=== PATIENT | female | born 1970 | race American Indian/Alaskan Native ===

== ENCOUNTER 2018-02-08 10:30 | Emergency (ER) | payer OTHER ==
--- NOTE | 2018-02-08 14:45 | Emergency Department Report ---
ED Psych HPI - General Chief Complaint: Psych Stated Complaint: MENTAL HEALTH EVALUATION Time Seen by Provider: 02/08/18 14:00 Source: patient, family Mode of arrival: Ambulatory Limitations: No Limitations - History of Present Illness Initial Comments: Patient is a 47-year-old female presents to the emergency room for paranoia and psychosis. Patient states that people are out to get her. Patient states that people hacking into her mind and phone. Patient states that the [facility] and has a government agencies are coming after her. Patient states that her family doesn' t believe her so they brought her here to be evaluated. Patient denies visual and audio hallucinations. Patient denies suicidal ideations and homicidal ideations. MD Complaint: other (paranoia) -: Gradual Associated Psychiatric Symptoms: racing thoughts History of same: Yes Quality: constant Improves With: therapy Worsens With: none Context: not taking psychiatric Associated Symptoms: denies other symptoms Treatments Prior to Arrival: none - Related Data Allergies Allergy/AdvReac Type Severity Reaction Status Date / Time hydrocortisone Allergy Itching Verified 02/08/18 10:38 ED Review of Systems ROS: Stated complaint: MENTAL HEALTH EVALUATION Other details as noted in HPI Comment: All other systems reviewed and negative Constitutional: denies: chills, fever Eyes: denies: eye pain, eye discharge, vision change ENT: denies: ear pain, throat pain Respiratory: denies: cough, shortness of breath, wheezing Cardiovascular: denies: chest pain, palpitations Endocrine: no symptoms reported Gastrointestinal: denies: abdominal pain, nausea, diarrhea Genitourinary: denies: urgency, dysuria, discharge Musculoskeletal: denies: back pain, joint swelling, arthralgia Skin: denies: rash, lesions Neurological: denies: headache, weakness, paresthesias Psychiatric: denies: anxiety, depression Hematological/Lymphatic: denies: easy bleeding, easy bruising ED Past Medical Hx - Past Medical History Previous Medical History?: Yes Hx HIV: Yes - Surgical History Past Surgical History?: Yes Additional Surgical History: hysterecomty. x 1 - Family History Family history: no significant - Social History Smoking Status: Current Every Day Smoker Substance Use Type: Alcohol, Marijuana ED Physical Exam - General Limitations: No Limitations General appearance: alert, in no apparent distress - Head Head exam: Present: atraumatic, normocephalic - Eye Eye exam: Present: normal appearance - ENT ENT exam: Present: mucous membranes moist - Neck Neck exam: Present: normal inspection - Respiratory Respiratory exam: Present: normal lung sounds bilaterally. Absent: respiratory distress - Cardiovascular Cardiovascular Exam: Present: regular rate, normal rhythm. Absent: systolic murmur, diastolic murmur, rubs, gallop - GI/Abdominal GI/Abdominal exam: Present: soft, normal bowel sounds - Extremities Exam Extremities exam: Present: normal inspection - Back Exam Back exam: Present: normal inspection - Neurological Exam Neurological exam: Present: alert, oriented X3 - Psychiatric Psychiatric exam: Present: anxious - Expanded Psychiatric Exam Expanded Focused psych exam: Present: pressured speech, delusional, paranoid, flight of ideas - Skin Skin exam: Present: warm, dry, intact, normal color. Absent: rash ED Course Vital Signs 02/08/18 02/08/18 10:38 10:46 Temperature 98.9 F 98.8 F Pulse Rate 102 H 89 Respiratory 18 18 Rate Blood Pressure 166/121 Blood Pressure 107/52 [Left] O2 Sat by Pulse 98 98 Oximetry - Reevaluation(s) Reevaluation #1: Patient unstable due to psychosis and paranoia. We'll 1013 patient for further evaluation and mental eval 02/08/18 14:00 ED Medical Decision Making - Lab Data Result diagrams: 02/08/18 10:56 02/08/18 10:56 - Medical Decision Making Patient medically cleared. All labs reviewed. Will await for psychiatric and mental evaluation. - Differential Diagnosis paranoia. Psychosis. Critical care attestation.: If time is entered above; I have spent that time in minutes in the direct care of this critically ill patient, excluding procedure time. ED Disposition Clinical Impression: Acute paranoia, Psychosis, Delusions Disposition: DC/TX-65 PSY HOSP/PSY UNIT Is pt being admited?: No Does the pt Need Aspirin: No Condition: Stable Time of Disposition: 16:00
[2018-02-08 15:21] LABS: Bacteria,Urine 1+ /HPF (Negative); Bilirubin,Urine NEG (Negative); Blood,Urine NEG (Negative); Color,Urine Yellow (Yellow); Mucus,Urine 3+ /HPF
[2018-02-08 15:27] LABS: Basophils % (Auto) 0.5 % (0.0-1.8); Eosinophils % (Auto) 0.6 % (0.0-4.3); Hematocrit 45.7 % (30.3-42.9); Hemoglobin 14.6 gm/dl (10.1-14.3); Lymphocytes % (Auto) 22.1 % (13.4-35.0); Mean Corpuscular HGB Conc 32 % (30-34); Mean Corpuscular Volume 76 fl (79-97); Monocytes # (Auto) 0.5 K/mm3 (0.0-0.8); Monocytes % (Auto) 10.6 % (0.0-7.3); Platelet Count 264 K/mm3 (140-440); Red Cell Distribution Width 14.9 % (13.2-15.2)
[2018-02-08 15:29] LABS: Mean Corpuscular Hemoglobin 24 pg (28-32)
[2018-02-08 16:03] LABS: BUN/Creatinine Ratio 6; Blood Urea Nitrogen 5 mg/dL (7-17); Calcium 9.3 mg/dL (8.4-10.2); Hemolysis Index 9
--- NOTE | 2018-02-08 18:23 | Consultation ---
History of Present Illness - Reason for Consult Consult date: 02/08/18 Reason for consult: mental health evaluation Requesting physician: CATHERINE SALINAS III - Chief Complaint Chief complaint: "They're trying to kill me" - History of Present Psychiatric Illness 47-year-old female presented to [facility] emergency room , due to paranoia and worsening in psychosis. Patient stated "someone put some bad stuff in my marijuana and they're trying to kill me". Patient also stated somebody tracking her and "they have connections". Patient reported the doctor to get dried on a [employer] bus 3 days ago, and smoking marijuana there, and returned to [place] today morning on a flight. She came to the emergency room directly from the airport. Patient did report that she has been feeling paranoid for the last 3-4 months. However she also stated "I know this is true " and was resistant and believing that these might be paranoid delusions. She vehemently denied having any auditory or visual hallucinations. Her sleep is disturbed. She denied having any depressive symptoms and also denied any anxiety. Denied any suicidal or homicidal ideations. Medications and Allergies Allergies Allergy/AdvReac Type Severity Reaction Status Date / Time hydrocortisone Allergy Itching Verified 02/08/18 10:38 Active Meds: Active Medications Olanzapine (Zyprexa) 5 mg PO HS FAMILIA Past psychiatric history - Past Medical History Past Medical History: other (HIV positive) - past Psychiatric treatment and history psychiatric treatment history: Denies any previous psychiatric hospitalizations. Denies any previous outpatient psychiatric treatment. - Social History Social history: single, other (patient reported that she has been living alone in a motel for the last 3-4 weeks. Prior to that she was living with her mother.) Mental Status Exam - Vital signs Last Vital Signs Temp 98.8 F 02/08/18 10:46 Pulse 89 02/08/18 10:46 Resp 18 02/08/18 10:46 BP 107/52 02/08/18 10:46 Pulse Ox 98 02/08/18 10:46 - Exam Orientation: place, person Affect: anxious, other (labile) Mood: other (irritable) Thought content: delusions, paranoia Thought Process: Circumstantial, Disorganized Perceptions: none Speech: rapid Concentration: distractible Motor activity: normal Level of consciousness: alert Memory: Intact Sleep Symptoms: Difficulty Falling Asleep Interaction: irritable Results Result Diagrams: 02/08/18 10:56 02/08/18 10:56 Abnormal lab results 02/08/18 02/08/18 02/08/18 Range/Units 10:56 10:56 10:56 RBC 6.00 H (3.65-5.03) M/mm3 Hgb 14.6 H (10.1-14.3) gm/dl Hct 45.7 H (30.3-42.9) % MCV 76 L (79-97) fl MCH 24 L (28-32) pg Thurston % (Auto) 10.6 H (0.0-7.3) % Lymph # 1.0 L (1.2-5.4) K/mm3 Chloride 97.7 L (98-107) mmol/L BUN 5 L (7-17) mg/dL Glucose 116 H (65-100) mg/dL Salicylates < 0.3 L (2.8-20.0) mg/dL All other labs normal. Assessment and Plan Assessment and plan: Assessment: Psychosis unspecified Cannabis use disorder Plan: Continue patient on 1013 due to her psychotic symptoms and safety concerns. At this time patient would need a psychiatric inpatient hospitalization. Patient's urine drug sample needs to be collected and tested, to rule out use of any other illicit substances which could be contributing to her symptoms. Will start patient on Zyprexa 5 mg at bedtime to help with the paranoia.
[2018-02-08 19:08] LABS: Amphetamine Screen,Urine PRESUMPTIVE NEGATIVE; Benzodiazepines Screen,Urine PRESUMPTIVE NEGATIVE; Cocaine Screen,Urine PRESUMPTIVE NEGATIVE; Methadone Screen,Urine PRESUMPTIVE NEGATIVE; Opiate Screen,Urine PRESUMPTIVE NEGATIVE
[2018-02-08 19:20] LABS: Cannabinoid Screen,Urine PRESUMPTIVE POSITIVE
--- NOTE | 2018-02-09 18:05 | Progress Note ---
Subjective - Reason for Consult Consult date: 02/09/18 Reason for consult: psychiatric follow-up - Chief Complaint Chief complaint: "I'm all right". 47-year-old female who was brought to the hospital by her daughter, due to worsening in paranoia and psychosis. Patient has been presenting with paranoid delusions July of last year. Yesterday she was worried about how people were trying to kill her. She also was very resistant to being started on any antipsychotic medication. However patient did agree and took the low dose Zyprexa 5 mg that was started yesterday night. She reported feeling "alright". She was not as irritable as yesterday. Continues to present with some delusions including paranoia" kind of". She also appeared hyper sabianism and stated "redirecting my life to God". She denied any current suicidal or homicidal ideations and denied any auditory or visual hallucinations. Mental Status Exam - Vital signs Last Vital Signs Temp 98.7 F 02/09/18 10:00 Pulse 59 L 02/09/18 10:00 Resp 20 02/09/18 10:00 BP 125/82 02/09/18 10:00 Pulse Ox 99 02/09/18 10:00 - Exam Narrative exam: MSE: Appearance: calm Behavior: good eye contact, not as irritable Speech: regular rate and low tone Mood: "Alright" Affect: congruent to mood, constricted Thought Process: tangential Thought Content: disorganized, delusional- paranoid and hyperreligious. Motor Activity: ambulatory Cognition: A/O x 3 Insight: poor Judgment: poor Assessment and Plan Assessment: Psychosis unspecified Cannabis use disorder Urine drug screen was positive for THC Plan: Continue patient on 1013 due to her psychotic symptoms and safety concerns, and facilitate transfer to an inpatient psychiatric hospital. At this time patient would need a psychiatric inpatient hospitalization. Continue on Zyprexa 5 mg at bedtime to help with the paranoia.
[2018-02-12 08:35] LABS: Alanine Aminotransferase 13 units/L (7-56); Lipase 24 units/L (13-60)
--- NOTE | 2018-02-12 12:27 | Progress Note ---
Subjective - Reason for Consult Consult date: 02/12/18 Reason for consult: Psychiatry Follow-up - Chief Complaint Chief complaint: "Nothing is wrong with me" 47-year-old female who was brought to the hospital by her daughter, due to worsening in paranoia and psychosis. The patient is cooperative during the assessment. She continue to be paranoid with delusional thoughts. She still think someone ([employer]) is tracking her. She had to be redirected several time to keep her on track. She stated, "Nothing is wrong with me." She denies SI /HI's and AVH's. She denies any side effects of her medication. She refuses to take Depakote. Mental Status Exam - Vital signs Last Vital Signs Temp 97.9 F 02/12/18 09:40 Pulse 51 L 02/12/18 09:40 Resp 16 02/12/18 09:40 BP 139/72 02/12/18 09:40 Pulse Ox 96 02/12/18 09:40 - Exam Narrative exam: MSE: Appearance: calm, cooperative Behavior: good eye contact Speech: regular rate and low tone Mood: "okay" Affect: congruent to mood Thought Process: circumstantial Thought Content: denies SI/HI's and AVH's, delusional, paranoid Motor Activity: ambulatory Cognition: A/O x 3 Insight: poor Judgment: variable Assessment and Plan Impression: Unspecified Psychosis. Cannabis Use DO. The patient is cooperative during the assessment. The patient is still paranoid with delusional thoughts. DDx: R/O Schizophrenia, R/O Schizoaffective DO, R/O Substance Induced Psychosis Recommendation/Plan: Continue 1013 with placement to inpatient psy services. Continue Zyprexa 5 mg PO HS for psychosis. Discussed possible metabolic side effects of Zyprexa with patient.
--- NOTE | 2018-02-13 00:58 | Progress Note ---
Subjective - Reason for Consult Consult date: 02/10/18 Reason for consult: Psychiatric Follow-up Evaluation - Chief Complaint Chief complaint: "I'm lares" Helen 47-year-old female who was brought to the hospital by her daughter, due to worsening paranoia and psychosis. Patient states, " I'm here because someone in [place] poisoned me. They wanted to hold me hostage. I smoked some marijuana and my whole mouth became numb." She denies SI/HI, A/VH, and delusions. However, paranoia is evident. She reports medication compliance with no side effects noted/reported. Mental Status Exam - Vital signs Last Vital Signs Temp 97.9 F 02/12/18 22:00 Pulse 60 02/12/18 22:00 Resp 18 02/12/18 22:00 BP 133/62 02/12/18 22:00 Pulse Ox 100 02/12/18 22:00 - Exam Narrative exam: Mental Status Exam: General Appearance: Casually dressed- hospital gown Attitude/Behavior: Cooperative but easily irritated Sensorium Distracted Orientation: Alert and oriented x 3 Speech: Rapid Mood: "Lares" Affect: Congruent to mood, constricted Thought Process: Tangential, circumstantial Thought Content: Paranoid Perception: WNL Insight: Poor Judgment: Poor Assessment and Plan Impression: Psychosis unspecified, Cannabis use disorder, Urine drug screen was positive for THC. Today, patient presents anxious, tangential, and paranoid. She denies SI/HI and A/VH. DDx: Psychosis unspecified, Cannabis use disorder, Plan: 1. Continue patient on 1012 due to her psychotic symptoms and safety concerns, and facilitate transfer to an inpatient psychiatric hospital. 2. At this time patient would need a psychiatric inpatient hospitalization. 3. Due to mood instability provider will order loading dose of Depakote 1000mg po x 1. 4. Will begin Depakote 500mg po BID for mood/hubert. 5. Will increase Zyprexa 10mg po QHS for psychosis/ mood.
--- NOTE | 2018-02-13 12:00 | Cat Scan Report ---
CT HEAD WITHOUT CONTRAST: HISTORY: Psychosis, altered mental status. TECHNIQUE: Sequential 2.5mm CT images. COMPARISON: none. FINDINGS: Cerebral Parenchyma: Within normal limits. Cerebellum: Within normal limits. Brainstem: Within normal limits. Ventricles: Normal. Sella: Normal. Extra-axial spaces: Normal. Basal Cisterns: Normal. Intracranial Hemorrhage: None. Midline Shift: None. Calvarium: Normal. Sinuses: Normal. Mastoid Air Cells: Normal. Visualized Orbits: Normal. IMPRESSION: Cranial CT scan within normal limits.
--- NOTE | 2018-02-13 12:10 | Progress Note ---
Subjective - Reason for Consult Consult date: 02/13/18 Reason for consult: Psychiatry Follow-up - Chief Complaint Chief complaint: "I am done smoking weed" 47-year-old female who was brought to the hospital by her daughter, due to worsening in paranoia and psychosis. The patient is calm and cooperative during the assessment. The patient is more organized and lucid today than previous assessments. She is not adamant about someone or something tracking her per previous interviews. She stated that she must have smoked some "bad weed" prior to her admission to the hospital. Per the staff, no behavioral disturbance overnight. She denies SI/HI's and AVH's. She denies any side effects of her medication. Per collateral information from the patient's son Ari Foley at [phone] , he stated that his mother does not have a mental health dx, but smoke marijuana often. He stated that she has experienced bizarre behavior in the past , but believe it came from "heavy use" of marijuana. He stated that his mother has mentioned that she believe someone put something in her "weed" in the past. Mental Status Exam - Vital signs Last Vital Signs Temp 97.9 F 02/12/18 22:00 Pulse 60 02/12/18 22:00 Resp 18 02/12/18 22:00 BP 133/62 02/12/18 22:00 Pulse Ox 100 02/12/18 22:00 - Exam Narrative exam: MSE: Appearance: calm, cooperative Behavior: good eye contact Speech: regular rate and low tone Mood: "okay" Affect: congruent to mood Thought Process: circumstantial Thought Content: denies SI/HI's and AVH's Motor Activity: ambulatory Cognition: A/O x 3 Insight: fair Judgment: fair Assessment and Plan Impression: Unspecified Psychosis. Cannabis Use DO. The patient is calm and cooperative during the assessment. DDx: R/O Schizophrenia, R/O Schizoaffective DO, R/O Substance Induced Psychosis Recommendation/Plan: Evaluate 1013 in 24 hours to determine proper dispo. Continue Zyprexa 10 mg PO HS for psychosis. Discussed possible metabolic side effects of Zyprexa with patient. The patient can follow up with [facility] for rehab services when discharged.
--- NOTE | 2018-02-14 15:04 | Progress Note ---
Subjective - Reason for Consult Consult date: 02/14/18 Reason for consult: Psychiatric Follow-up Evaluation - Chief Complaint Chief complaint: "I feel great." Helen is 47-year-old female who was brought to the hospital by her daughter , due to worsening in paranoia and psychosis. Today patient is calm, cooperative , and compliant. She reports " I feel great. I'm ready to go home." Today patient thought process is organized without any psychosis. She reports medication compliance. She denies any side effects. Per the staff, no behavioral disturbance overnight. She denies SI/HI's, AVH's, or delusions. Mental Status Exam - Vital signs Last Vital Signs Temp 98.7 F 02/14/18 10:32 Pulse 62 02/14/18 10:32 Resp 18 02/14/18 10:32 BP 135/79 02/14/18 10:32 Pulse Ox 98 02/14/18 10:32 - Exam Narrative exam: Narrative exam: Appearance: Hospital gown Attitude/Behavior: Cooperative Sensorium: Clear Oriented: alert and oriented x 4 ( person, place, time, and situation) Speech: Normal rate and low tone Mood: " Great. " Affect: congruent to mood Thought Process: Organized but circumstantial Thought Content: Patient denies Motor Activity: Ambulatory Insight: Fair Judgment: Fair Assessment and Plan Impression: Unspecified Psychosis. Cannabis Use DO. The patient is calm and cooperative during the assessment. She denies SI/HI, A/VH, and delusions. DDx: R/O Schizophrenia, R/O Schizoaffective DO, R/O Substance Induced Psychosis Recommendation/Plan: 1. Will rescind 1013. 2. Continue Zyprexa 10 mg PO HS for psychosis. Discussed possible metabolic side effects of Zyprexa with patient. 3. Patient will follow-up at [facility] for outpatient services when discharged.
[2018-02-14 17:41] VITALS: BP 149/95
--- NOTE | 2018-02-14 17:42 | Emergency Department Report ---
ED Psych HPI - General Chief Complaint: Psych Stated Complaint: MENTAL HEALTH EVALUATION Time Seen by Provider: 02/08/18 14:00 Source: patient, family Mode of arrival: Ambulatory - History of Present Illness Quality: constant Improves With: therapy Worsens With: none Associated Symptoms: denies other symptoms Treatments Prior to Arrival: none - Related Data Previous Rx's Medication Instructions Recorded Last Taken Type OLANzapine [Zyprexa] 10 mg PO QHS #15 tablet 02/14/18 Unknown Rx Allergies Allergy/AdvReac Type Severity Reaction Status Date / Time hydrocortisone Allergy Itching Verified 02/08/18 10:38 ED Review of Systems ROS: Stated complaint: MENTAL HEALTH EVALUATION Other details as noted in HPI Constitutional: denies: chills, fever Eyes: denies: eye pain, eye discharge, vision change ENT: denies: ear pain, throat pain Respiratory: denies: cough, shortness of breath, wheezing Cardiovascular: denies: chest pain, palpitations Endocrine: no symptoms reported Gastrointestinal: denies: abdominal pain, nausea, diarrhea Genitourinary: denies: urgency, dysuria, discharge Musculoskeletal: denies: back pain, joint swelling, arthralgia Skin: denies: rash, lesions Neurological: denies: headache, weakness, paresthesias Psychiatric: denies: anxiety, depression Hematological/Lymphatic: denies: easy bleeding, easy bruising ED Past Medical Hx - Past Medical History Previous Medical History?: Yes Hx HIV: Yes - Surgical History Past Surgical History?: Yes Additional Surgical History: hysterecomty. x 1 - Social History Smoking Status: Current Every Day Smoker Substance Use Type: Alcohol, Marijuana - Medications Home Medications: Home Medications Medication Instructions Recorded Confirmed Last Taken Type OLANzapine [Zyprexa] 10 mg PO QHS #15 tablet 02/14/18 Unknown Rx ED Physical Exam - General Limitations: No Limitations General appearance: alert, in no apparent distress ED Course Vital Signs 02/08/18 02/08/18 02/08/18 10:38 10:46 21:03 Temperature 98.9 F 98.8 F 98.6 F Pulse Rate 102 H 89 69 Respiratory 18 18 16 Rate Blood Pressure 166/121 Blood Pressure 107/52 148/78 [Left] O2 Sat by Pulse 98 98 97 Oximetry 02/09/18 02/09/18 02/09/18 10:00 15:45 20:36 Temperature 98.7 F 98.3 F Pulse Rate 59 L 54 L Respiratory 20 18 18 Rate Blood Pressure 146/83 Blood Pressure 125/82 [Left] O2 Sat by Pulse 99 99 98 Oximetry 02/09/18 02/09/18 02/10/18 21:13 22:26 08:58 Temperature 98.4 F 98.5 F Pulse Rate 83 64 Respiratory 18 18 18 Rate Blood Pressure Blood Pressure 115/64 112/62 [Left] O2 Sat by Pulse 100 100 100 Oximetry 02/10/18 02/11/18 02/11/18 22:00 08:51 20:21 Temperature 97.9 F 98.4 F Pulse Rate 52 L 54 L 64 Respiratory 18 20 Rate Blood Pressure Blood Pressure 122/75 132/77 145/79 [Left] O2 Sat by Pulse 100 Oximetry 02/12/18 02/12/18 02/12/18 09:06 09:40 22:00 Temperature 97.9 F 97.9 F Pulse Rate 51 L 60 Respiratory 16 16 18 Rate Blood Pressure Blood Pressure 139/72 133/62 [Left] O2 Sat by Pulse 100 96 100 Oximetry 02/13/18 02/13/18 02/14/18 07:35 20:55 10:32 Temperature 97.3 F L 97.6 F 98.7 F Pulse Rate 60 58 L 62 Respiratory 18 17 18 Rate Blood Pressure Blood Pressure 121/74 152/80 135/79 [Left] O2 Sat by Pulse 98 99 98 Oximetry ED Medical Decision Making - Lab Data Result diagrams: 02/08/18 10:56 02/08/18 10:56 - Medical Decision Making Patient was 1013onarrivalperweekagoforpsychosisandparanoiashewasstartedon zyprexa mentalhealthfeelsthatsheisnolongerdangertoselforothersnolongergravelydisabledsta bleforoutpatientfollow - up.Given[facility]continuetheZyprexaIdidexaminethepatientshedoe sseemtobealertandoriented 3withoutadmissionofsuicidalorhomicidalideationoranyevidenceofpsychosisshewasfelt tobestableforoutpatientfollow -up. no med c/o, a and ox 3, nonfocal neuro exam, supple neck , vss Critical care attestation.: If time is entered above; I have spent that time in minutes in the direct care of this critically ill patient, excluding procedure time. ED Disposition Clinical Impression: Acute paranoia, Marijuana abuse Disposition: DC/TX-65 PSY HOSP/PSY UNIT Is pt being admited?: No Condition: Stable Instructions: Brief Psychotic Disorder (ED) Additional Instructions: follow up at [facility] as directed by the mental health counselor, discontinue marijuana use, return if you have new or alarming or worse or persistant symptoms or call 911 Prescriptions: OLANzapine [Zyprexa] 10 mg PO QHS #15 tablet Referrals: PRIMARY CARE, [Primary Care Provider] - 3-5 Days Time of Disposition: 17:43
== END 2018-02-14 17:48 ==
LOC: ED 10:30 → EEVIPCON 10:30 → ED 02-14 17:48
DX: F22 Delusional disorders (principal); F29 Unspecified psychosis not due to a substance or known physiological condition; F17.200 Nicotine dependence, unspecified, uncomplicated; F12.10 Cannabis abuse, uncomplicated
CPT/HCPCS: 36415; 70450; 80048; 80307; 81001; 82150; 83690; 84075; 84450; 84460; 84703; 85025; 99285; G0480; 80320

== ENCOUNTER 2021-03-22 18:44 | Emergency (ER) | payer SELFPAY ==
--- NOTE | 2021-03-22 19:50 | Event Note ---
ED Screening Note Date of service: 03/22/21 Time: 19:58 ED Screening Note: 50-year-old -[place] female presents to the emergency room with her son for concerns of psychosis and paranoia. Son reports that patient is not able to keep a job as she always has conflict. She is currently sleeping out of her car as she has complaints that the neighbors are videotaping her or there is some man with a duffel bag. Son reports that she is very confrontational. Son reports that she feels that people are out to get her. She is very accusatory of things being taken from her. She does report she smokes cigarettes. She states in her younger years she used to drink heavily and smoke weed. She is HIV positive and has been undetected for quite a while. She has had been seen here at our hospital for mental health in the past. She refused to take psychotic medications. She has had a partial hysterectomy. This initial assessment/diagnostic orders/clinical plan/treatment(s) is/are subject to change based on patients health status, clinical progression and re- assessment by fellow clinical providers in the ED. Further treatment and workup at subsequent clinical providers discretion. Patient/guardian urged not to elope from the ED as their condition may be serious if not clinically assessed and managed. Initial orders include:
[2021-03-22 20:50] LABS: Basophils % (Auto) 1.1 % (0.0-1.8); Eosinophils # (Auto) 0.1 K/mm3 (0.0-0.4); Eosinophils % (Auto) 4.1 % (0.0-4.3); Lymphocytes # (Auto) 1.4 K/mm3 (1.2-5.4); Lymphocytes % (Auto) 41.4 % (13.4-35.0); Mean Corpuscular HGB Conc 33 % (30-34); Mean Corpuscular Volume 77 fl (79-97); Monocytes # (Auto) 0.3 K/mm3 (0.0-0.8); Monocytes % (Auto) 7.7 % (0.0-7.3); Platelet Count 296 K/mm3 (140-440); Red Blood Count 5.58 M/mm3 (3.65-5.03); Red Cell Distribution Width 15.1 % (13.2-15.2)
[2021-03-22 20:58] LABS: Amphetamine Screen,Urine Negative; Benzodiazepines Screen,Urine Negative; Cannabinoid Screen,Urine Negative; Cocaine Screen,Urine Negative; Methadone Screen,Urine Negative; Opiate Screen,Urine Negative
[2021-03-22 21:00] LABS: Alanine Aminotransferase 10 units/L (7-56); Albumin 4.6 g/dL (3.9-5); BUN/Creatinine Ratio 6; Blood Urea Nitrogen 5 mg/dL (7-17); Calcium 9.9 mg/dL (8.4-10.2); Hemolysis Index 4
[2021-03-22 21:29] LABS: Bacteria,Urine 1+ /HPF (Negative); Bilirubin,Urine NEG (Negative); Blood,Urine NEG (Negative); Color,Urine Straw (Yellow); Mucus,Urine FEW /HPF; Protein,Urine <15 mg/dL mg/dL (Negative); Urobilinogen,Urine < 2.0 mg/dL (<2.0); WBC,Urine < 1.0 /HPF (0.0-6.0)
--- NOTE | 2021-03-23 01:48 | Emergency Department Report ---
ED General Adult HPI - General Chief complaint: Medical Clearance Stated complaint: DAVID EVAL PUI?: No Time Seen by Provider: 03/23/21 01:28 Source: patient, RN notes reviewed, old records reviewed Mode of arrival: Ambulatory Limitations: No Limitations - History of Present Illness Initial comments: The patient was evaluated in the emergency department for symptoms described in the history of present illness. He/she was evaluated in the context of the global COVID-19 pandemic, which necessitated consideration that the patient might be at risk for infection with the virus that causes COVID-19. Institutional protocols and algorithms that pertain to the evaluation of patients at risk for COVID-19 are in a state of rapid change based on information released by regulatory bodies including the CDC and federal and state organizations. These policies and algorithms were followed during the patient's care in the emergency department. Please note that these policies, procedures and recommendations changed on a rapid basis. Patient is a 50-year-old female, history of psychiatric disease, also reports a history of HIV, does not know CD4 count does not know viral load, currently on Biktarvy, and Bactrim, sending to the ER with a complaint of request for psychiatric evaluation. The patient endorses that she feels that she may want to hurt other people, she is not having hallucinations, and she is not suicidal. The patient does report that she "feels off." The patient denies physical pain. The patient denies Covid symptoms, loss of taste and smell, cough, shortness of breath and urinary symptoms. The patient indicates she does not want to overdose. The patient does not describe exacerbating or relieving factors at this time. -: Gradual Improves with: none Worsens with: none Associated Symptoms: denies other symptoms - Related Data Home Medications Medication Instructions Recorded Confirmed Last Taken Bictegrav/Emtricit/Tenofov Ala 1 each PO DAILY 03/23/21 03/23/21 Unknown [Biktarvy 50-200-25 mg (Nf)] Cetirizine HCl [All Day Allergy 10 mg PO DAILY 03/23/21 03/23/21 Unknown Relief] Cholecalciferol Vit D3 [Vitamin D3 1,000 unit PO QDAY 03/23/21 03/23/21 Unknown 1,000 UNIT TAB] Omeprazole 20 mg PO DAILY 03/23/21 03/23/21 Unknown Sulfamethoxazole/Trimethoprim 1 each PO DAILY 03/23/21 03/23/21 Unknown [Sulfamethoxazole-Tmp Ds Tablet] cloNIDine [Catapres] 0.1 mg PO QHS 03/23/21 03/23/21 Unknown lisinopriL [Lisinopril] 20 mg PO DAILY 03/23/21 03/23/21 Unknown Allergies Allergy/AdvReac Type Severity Reaction Status Date / Time hydrocortisone Allergy Itching Verified 02/08/18 10:38 ED Review of Systems ROS: Stated complaint: MH EVAL Other details as noted in HPI Comment: All other systems reviewed and negative Psychiatric: as per HPI. denies: suicidal thoughts ED Past Medical Hx - Past Medical History Hx HIV: Yes - Surgical History Additional Surgical History: hysterecomty. x 1 - Social History Smoking Status: Unknown if ever smoked Substance Use Type: None - Medications Home Medications: Home Medications Medication Instructions Recorded Confirmed Last Taken Type Bictegrav/Emtricit/Tenofov Ala 1 each PO DAILY 03/23/21 03/23/21 Unknown History [Biktarvy 50-200-25 mg (Nf)] Cetirizine HCl [All Day Allergy 10 mg PO DAILY 03/23/21 03/23/21 Unknown History Relief] Cholecalciferol Vit D3 [Vitamin D3 1,000 unit PO QDAY 03/23/21 03/23/21 Unknown History 1,000 UNIT TAB] Omeprazole 20 mg PO DAILY 03/23/21 03/23/21 Unknown History Sulfamethoxazole/Trimethoprim 1 each PO DAILY 03/23/21 03/23/21 Unknown History [Sulfamethoxazole-Tmp Ds Tablet] cloNIDine [Catapres] 0.1 mg PO QHS 03/23/21 03/23/21 Unknown History lisinopriL [Lisinopril] 20 mg PO DAILY 03/23/21 03/23/21 Unknown History ED Physical Exam - General Limitations: No Limitations General appearance: alert, in no apparent distress - Head Head exam: Present: atraumatic, normocephalic - Eye Eye exam: Present: normal appearance, EOMI. Absent: nystagmus - ENT ENT exam: Present: normal exam, normal orophraynx, mucous membranes moist, normal external ear exam - Neck Neck exam: Present: normal inspection, full ROM. Absent: tenderness, meningismus - Respiratory Respiratory exam: Present: normal lung sounds bilaterally. Absent: respiratory distress, wheezes, rales, rhonchi, stridor, decreased breath sounds - Cardiovascular Cardiovascular Exam: Present: regular rate, normal rhythm, normal heart sounds. Absent: bradycardia, tachycardia, irregular rhythm, systolic murmur, diastolic murmur, rubs, gallop - GI/Abdominal GI/Abdominal exam: Present: soft. Absent: distended, tenderness, guarding, rebound, rigid, pulsatile mass - Extremities Exam Extremities exam: Present: normal inspection, full ROM, other (2+ pulses noted in the bilateral upper and lower extremities. There is no palpable cord. negative Homans sign. Muscular compartments are soft. The pelvis is stable.). Absent: pedal edema, calf tenderness - Back Exam Back exam: Present: normal inspection, full ROM. Absent: tenderness, CVA tenderness (R), CVA tenderness (L), paraspinal tenderness, vertebral tenderness - Neurological Exam Neurological exam: Present: alert, oriented X3, other (No facial droop. Tongue midline. Extraocular movements intact bilaterally. Facial sensation intact to light touch in V1, V2, V3 distribution bilaterally. 5 and a 5 strength in 4 extremities. Sensation intact to light touch in 4 extremities.). Absent: motor sensory deficit - Psychiatric Psychiatric exam: Present: flat affect. Absent: suicidal ideation - Skin Skin exam: Present: warm, dry, intact, normal color. Absent: rash ED Course Vital Signs 03/22/21 03/23/21 20:04 03:37 Temperature 98.2 F 98.2 F Pulse Rate 86 71 Respiratory 18 16 Rate Blood Pressure 115/82 111/76 [Right] O2 Sat by Pulse 100 100 Oximetry ED Medical Decision Making - Lab Data Result diagrams: 03/22/21 20:20 03/22/21 20:20 Vital Signs 03/22/21 20:04 Temperature 98.2 F Pulse Rate 86 Respiratory 18 Rate Blood Pressure 115/82 [Right] O2 Sat by Pulse 100 Oximetry Lab Results 03/22/21 03/22/21 03/22/21 Range/Units 20:20 20:20 20:20 WBC 3.5 L (4.5-11.0) K/mm3 RBC 5.58 H (3.65-5.03) M/mm3 Hgb 14.0 (10.1-14.3) gm/dl Hct 43.0 H (30.3-42.9) % MCV 77 L (79-97) fl MCH 25 L (28-32) pg MCHC 33 (30-34) % RDW 15.1 (13.2-15.2) % Plt Count 296 (140-440) K/mm3 Lymph % (Auto) 41.4 H (13.4-35.0) % [place] % (Auto) 7.7 H (0.0-7.3) % Eos % (Auto) 4.1 (0.0-4.3) % Baso % (Auto) 1.1 (0.0-1.8) % Lymph # (Auto) 1.4 (1.2-5.4) K/mm3 [place] # (Auto) 0.3 (0.0-0.8) K/mm3 Eos # (Auto) 0.1 (0.0-0.4) K/mm3 Baso # (Auto) 0.0 (0.0-0.1) K/mm3 Seg Neutrophils % 45.7 (40.0-70.0) % Seg Neutrophils # 1.6 L (1.8-7.7) K/mm3 Sodium 140 (137-145) mmol/L Potassium 4.1 (3.6-5.0) mmol/L Chloride 103.1 (98-107) mmol/L Carbon Dioxide 26 (22-30) mmol/L Anion Gap 15 mmol/L BUN 5 L (7-17) mg/dL Creatinine 0.9 (0.6-1.2) mg/dL Estimated GFR > 60 ml/min BUN/Creatinine Ratio 6 % Glucose 88 (65-100) mg/dL Calcium 9.9 (8.4-10.2) mg/dL Magnesium (1.7-2.3) mg/dL Total Bilirubin 0.30 (0.1-1.2) mg/dL AST 12 (5-40) units/L ALT 10 (7-56) units/L Alkaline Phosphatase 117 (35-129) units/L Total Creatine Kinase (30-135) units/L Total Protein 8.3 H (6.3-8.2) g/dL Albumin 4.6 (3.9-5) g/dL Albumin/Globulin Ratio 1.2 % HCG, Quant < 2 (0-4) mIU/mL Urine Color (Yellow) Urine Turbidity (Clear) Urine pH (5.0-7.0) Ur Specific [place] (1.003-1.030) Urine Protein (Negative) mg/dL Urine Glucose (UA) (Negative) mg/dL Urine Ketones (Negative) mg/dL Urine Blood (Negative) Urine Nitrite (Negative) Urine Bilirubin (Negative) Urine Urobilinogen (<2.0) mg/dL Ur Leukocyte Esterase (Negative) Urine WBC (Auto) (0.0-6.0) /HPF Urine RBC (Auto) (0.0-6.0) /HPF U Epithel Cells (Auto) (0-13.0) /HPF Urine Bacteria (Auto) (Negative) /HPF Urine Mucus /HPF Salicylates (2.8-20.0) mg/dL Urine Opiates Screen Urine Methadone Screen Acetaminophen (10.0-30.0) ug/mL Ur Barbiturates Screen Ur Phencyclidine Scrn Ur Amphetamines Screen U Benzodiazepines Scrn Urine Cocaine Screen U Marijuana (THC) Screen Drugs of Abuse Note Plasma/Serum Alcohol (0-0.07) % 03/22/21 03/22/21 03/22/21 Range/Units 20:20 20:20 20:20 WBC (4.5-11.0) K/mm3 RBC (3.65-5.03) M/mm3 Hgb (10.1-14.3) gm/dl Hct (30.3-42.9) % MCV (79-97) fl MCH (28-32) pg MCHC (30-34) % RDW (13.2-15.2) % Plt Count (140-440) K/mm3 Lymph % (Auto) (13.4-35.0) % [place] % (Auto) (0.0-7.3) % Eos % (Auto) (0.0-4.3) % Baso % (Auto) (0.0-1.8) % Lymph # (Auto) (1.2-5.4) K/mm3 [place] # (Auto) (0.0-0.8) K/mm3 Eos # (Auto) (0.0-0.4) K/mm3 Baso # (Auto) (0.0-0.1) K/mm3 Seg Neutrophils % (40.0-70.0) % Seg Neutrophils # (1.8-7.7) K/mm3 Sodium (137-145) mmol/L Potassium (3.6-5.0) mmol/L Chloride (98-107) mmol/L Carbon Dioxide (22-30) mmol/L Anion Gap mmol/L BUN (7-17) mg/dL Creatinine (0.6-1.2) mg/dL Estimated GFR ml/min BUN/Creatinine Ratio % Glucose (65-100) mg/dL Calcium (8.4-10.2) mg/dL Magnesium (1.7-2.3) mg/dL Total Bilirubin (0.1-1.2) mg/dL AST (5-40) units/L ALT (7-56) units/L Alkaline Phosphatase (35-129) units/L Total Creatine Kinase (30-135) units/L Total Protein (6.3-8.2) g/dL Albumin (3.9-5) g/dL Albumin/Globulin Ratio % HCG, Quant (0-4) mIU/mL Urine Color (Yellow) Urine Turbidity (Clear) Urine pH (5.0-7.0) Ur Specific [place] (1.003-1.030) Urine Protein (Negative) mg/dL Urine Glucose (UA) (Negative) mg/dL Urine Ketones (Negative) mg/dL Urine Blood (Negative) Urine Nitrite (Negative) Urine Bilirubin (Negative) Urine Urobilinogen (<2.0) mg/dL Ur Leukocyte Esterase (Negative) Urine WBC (Auto) (0.0-6.0) /HPF Urine RBC (Auto) (0.0-6.0) /HPF U Epithel Cells (Auto) (0-13.0) /HPF Urine Bacteria (Auto) (Negative) /HPF Urine Mucus /HPF Salicylates < 0.3 L (2.8-20.0) mg/dL Urine Opiates Screen Urine Methadone Screen Acetaminophen 5.0 L (10.0-30.0) ug/mL Ur Barbiturates Screen Ur Phencyclidine Scrn Ur Amphetamines Screen U Benzodiazepines Scrn Urine Cocaine Screen U Marijuana (THC) Screen Drugs of Abuse Note Plasma/Serum Alcohol 0.03 (0-0.07) % 03/22/21 03/22/21 03/23/21 Range/Units Unknown Unknown 00:00 WBC (4.5-11.0) K/mm3 RBC (3.65-5.03) M/mm3 Hgb (10.1-14.3) gm/dl Hct (30.3-42.9) % MCV (79-97) fl MCH (28-32) pg MCHC (30-34) % RDW (13.2-15.2) % Plt Count (140-440) K/mm3 Lymph % (Auto) (13.4-35.0) % [place] % (Auto) (0.0-7.3) % Eos % (Auto) (0.0-4.3) % Baso % (Auto) (0.0-1.8) % Lymph # (Auto) (1.2-5.4) K/mm3 [place] # (Auto) (0.0-0.8) K/mm3 Eos # (Auto) (0.0-0.4) K/mm3 Baso # (Auto) (0.0-0.1) K/mm3 Seg Neutrophils % (40.0-70.0) % Seg Neutrophils # (1.8-7.7) K/mm3 Sodium (137-145) mmol/L Potassium (3.6-5.0) mmol/L Chloride (98-107) mmol/L Carbon Dioxide (22-30) mmol/L Anion Gap mmol/L BUN (7-17) mg/dL Creatinine (0.6-1.2) mg/dL Estimated GFR ml/min BUN/Creatinine Ratio % Glucose (65-100) mg/dL Calcium (8.4-10.2) mg/dL Magnesium 2.10 (1.7-2.3) mg/dL Total Bilirubin (0.1-1.2) mg/dL AST (5-40) units/L ALT (7-56) units/L Alkaline Phosphatase (35-129) units/L Total Creatine Kinase 72 (30-135) units/L Total Protein (6.3-8.2) g/dL Albumin (3.9-5) g/dL Albumin/Globulin Ratio % HCG, Quant (0-4) mIU/mL Urine Color Straw (Yellow) Urine Turbidity Clear (Clear) Urine pH 6.0 (5.0-7.0) Ur Specific [place] 1.002 L (1.003-1.030) Urine Protein <15 mg/dl (Negative) mg/dL Urine Glucose (UA) Neg (Negative) mg/dL Urine Ketones Neg (Negative) mg/dL Urine Blood Neg (Negative) Urine Nitrite Neg (Negative) Urine Bilirubin Neg (Negative) Urine Urobilinogen < 2.0 (<2.0) mg/dL Ur Leukocyte Esterase Neg (Negative) Urine WBC (Auto) < 1.0 (0.0-6.0) /HPF Urine RBC (Auto) 2.0 (0.0-6.0) /HPF U Epithel Cells (Auto) < 1.0 (0-13.0) /HPF Urine Bacteria (Auto) 1+ (Negative) /HPF Urine Mucus Few /HPF Salicylates (2.8-20.0) mg/dL Urine Opiates Screen Negative Urine Methadone Screen Negative Acetaminophen (10.0-30.0) ug/mL Ur Barbiturates Screen Negative Ur Phencyclidine Scrn Negative Ur Amphetamines Screen Negative U Benzodiazepines Scrn Negative Urine Cocaine Screen Negative U Marijuana (THC) Screen Negative Drugs of Abuse Note Disclamer Plasma/Serum Alcohol (0-0.07) % - Medical Decision Making Differential diagnosis, including but not limited to: Medical clearance for psychiatric placement Assessment and plan: 50-year-old female presenting to the ER with a complaint of possibly wanting to hurt other people, and nursing documentation indicated that the patient having paranoid thoughts. The patient is alert and oriented, sober, pleasant and cooperative, not belligerent, violent or combative. We will continue her home medications. Patient does not appear to have an acutely decompensated medical condition at this time,, and does not appear to have an emergent medical condition at this time which would preclude psychiatric consultation, evaluation, and placement. Patient placed on hold status, psychiatric consultation is pending. Have discussed this plan of care with the patient, who articulated understanding. Covid swab ordered in case patient merits placement in an inpatient psychiatric facility. However, we do not clinically suspect Covid. Critical care attestation.: If time is entered above; I have spent that time in minutes in the direct care of this critically ill patient, excluding procedure time. ED Disposition Clinical Impression: Medical clearance for psychiatric admission Disposition: [id number] PSY HOSP/PSY UNIT Is pt being admited?: No Does the pt Need Aspirin: No Condition: Good Referrals: PRIMARY CARE, [Primary Care Provider] - 3-5 Days
[2021-03-23] MEDS ORDERED: diphenhydrAMINE 25 MG CAP PO PRN (01:57)
[2021-03-23] MEDS ORDERED: ONDANSETRON 4 MG ODT TAB PO PRN (01:57)
[2021-03-23] MEDS ORDERED: ACETAMINOPHEN 325 MG TAB PO PRN (01:57)
[2021-03-23] MEDS ORDERED: LORazepam 2 MG/ML VIAL IM PRN (01:57)
[2021-03-23] MEDS ORDERED: [UNRECOGNIZED DRUG - REMARK] PO SCH (10:00)
[2021-03-23] MEDS ORDERED: NON-FORMULARY EACH (Omeprazole [Omeprazole] 20 MG Capsule.Dr) PO SCH (10:00)
--- NOTE | 2021-03-23 10:12 | Consultation ---
History of Present Illness - Reason for Consult Consult date: 03/23/21 Reason for consult: psychosis - History of Present Psychiatric Illness Per ED Note: 50-year-old -[place] female presents to the emergency room with her son for concerns of psychosis and paranoia. Son reports that patient is not able to keep a job as she always has conflict. She is currently sleeping out of her car as she has complaints that the neighbors are videotaping her or there is some man with a duffel bag. Son reports that she is very confrontational. Son reports that she feels that people are out to get her. She is very accusatory of things being taken from her. She does report she smokes cigarettes. She states in her younger years she used to drink heavily and smoke weed. She is HIV positive and has been undetected for quite a while. She has had been seen here at our hospital for mental health in the past. She refused to take psychotic medications. She has had a partial hysterectomy. Helen Rivers is a 50y/o female patient who son brought to the ER for psychosis. During my assessment of this patient she states she is "not feeling well." The patient says "my life and mu mental state is not right." When asking the patient to explain what was going on, she says "I'm homicidal and want to kill certain people who have entered my life." The patient says she sees "spirits and witchcraft. " She denies being on any psych meds and states she hasn't seen a psychiatrist in about two years. The patient says "I don't want no meds to make me crazy." When asking about her psych diagnosis, she says "they didn't give me a diagnosis." She denies any illicit drug use or alcohol. She says she smokes a pack of cigarets a day. PAST PSYCHIATRIC HISTORY: Diagnoses: Denies Suicide attempts or Self-harm behavior: Denies Prior psychiatric hospitalizations: Denies Substance Abuse history: Denies Previous psychiatric medications tried: Denies Outpatient treatment: Denies PAST MEDICAL HISTORY: None reported Family Psychiatric History: None reported or documented SOCIAL HISTORY Marital Status: Living Arrangements: alone Employment Status: Unemployed Access to guns/weapons: Denies Education: high school History of Abuse: Denies Legal History: Denies REVIEW OF SYSTEMS Constitutional: Negative for weight loss ENT: Negative for stridor Respiratory: Negative for cough or hemoptysis All other systems reviewed and are negative MENTAL STATUS EXAMINATION General Appearance and Behavior: Age appropriate, good hygiene, not wearing appropriate clothes, good eye contact, suspicious Cooperation: Participating Psychomotor Behavior: Psychomotor normal Mood: "not well" Affect and affective range: Restricted Thought Process: illogical Speech: Normal tone and pace Thought Content Suicidal Ideation: Denies Homicidal Ideation: Yes Hallucinations: Visual Delusions: None elicited Impulse Control: Limited Insight and Judgment: Impaired insight and judgment Memory: Limited Attention: Divided attention impaired Orientation: A/o x 3 Assessment and Plan (1) Psychosis, Unspecified Current Visit: Yes Status: Acute Treatment Plan 1013 Prozac 10mg po daily Risperidone 0.25mg po BID Sitter: Defer to primary Medical: Per primary Disposition: Recommend acute psychiatric inpatient treatment Will follow. Thank you for this consult Case staffed by Dr. Cheney Medications and Allergies Allergies Allergy/AdvReac Type Severity Reaction Status Date / Time hydrocortisone Allergy Itching Verified 02/08/18 10:38 Home Medications Medication Instructions Recorded Confirmed Last Taken Type Bictegrav/Emtricit/Tenofov Ala 1 each PO DAILY 03/23/21 03/23/21 Unknown History [Biktarvy 50-200-25 mg (Nf)] Cetirizine HCl [All Day Allergy 10 mg PO DAILY 03/23/21 03/23/21 Unknown History Relief] Cholecalciferol Vit D3 [Vitamin D3 1,000 unit PO QDAY 03/23/21 03/23/21 Unknown History 1,000 UNIT TAB] Omeprazole 20 mg PO DAILY 03/23/21 03/23/21 Unknown History Sulfamethoxazole/Trimethoprim 1 each PO DAILY 03/23/21 03/23/21 Unknown History [Sulfamethoxazole-Tmp Ds Tablet] cloNIDine [Catapres] 0.1 mg PO QHS 03/23/21 03/23/21 Unknown History lisinopriL [Lisinopril] 20 mg PO DAILY 03/23/21 03/23/21 Unknown History Active Meds: Active Medications Acetaminophen (Acetaminophen 325 Mg Tab) 650 mg PO Q6HR PRN PRN Reason: PAIN Cetirizine HCl (Cetirizine 10 Mg Tab) 10 mg PO DAILY [facility] Cholecalciferol (Cholecalciferol (Vit D3) 1000 Unit (25 Mcg) Tab) 1,000 unit PO QDAY [facility] Clonidine HCl (Clonidine 0.1 Mg Tab) 0.1 mg PO QHS [facility] Diphenhydramine HCl (Diphenhydramine 25 Mg Cap) 50 mg PO QHS PRN PRN Reason: Insomnia Lisinopril (Lisinopril 20 Mg Tab) 20 mg PO DAILY [facility] Lorazepam (Lorazepam 2 Mg/Ml Vial) 2 mg IM Q4HR PRN PRN Reason: Agitation Miscellaneous Medication (Bictegrav/Emtricit/Tenofov Ala) 1 each PO DAILY [facility] Ondansetron HCl (Ondansetron 4 Mg Odt Tab) 4 mg PO Q6HR PRN PRN Reason: Nausea Pantoprazole Sodium (Pantoprazole 20 Mg Tab) 20 mg PO QDAY [facility] Trimethoprim/Sulfamethoxazole (Sulfamethoxazole/Trimethoprim 800/160mg Ds Tab) 1 each PO DAILY [facility]; Protocol Mental Status Exam - Vital signs Last Vital Signs Temp 98.2 F 03/23/21 03:37 Pulse 71 03/23/21 03:37 Resp 16 03/23/21 03:37 BP 111/76 03/23/21 03:37 Pulse Ox 100 03/23/21 03:37 Results Result Diagrams: 03/22/21 20:20 03/22/21 20:20 Abnormal lab results 03/22/21 03/22/21 03/22/21 Range/Units 20:20 20:20 20:20 WBC 3.5 L (4.5-11.0) K/mm3 RBC 5.58 H (3.65-5.03) M/mm3 Hct 43.0 H (30.3-42.9) % MCV 77 L (79-97) fl MCH 25 L (28-32) pg Lymph % (Auto) 41.4 H (13.4-35.0) % [place] % (Auto) 7.7 H (0.0-7.3) % Seg Neutrophils # 1.6 L (1.8-7.7) K/mm3 BUN 5 L (7-17) mg/dL Total Protein 8.3 H (6.3-8.2) g/dL Ur Specific [place] (1.003-1.030) Salicylates < 0.3 L (2.8-20.0) mg/dL Acetaminophen (10.0-30.0) ug/mL 03/22/21 03/22/21 Range/Units 20:20 Unknown WBC (4.5-11.0) K/mm3 RBC (3.65-5.03) M/mm3 Hct (30.3-42.9) % MCV (79-97) fl MCH (28-32) pg Lymph % (Auto) (13.4-35.0) % [place] % (Auto) (0.0-7.3) % Seg Neutrophils # (1.8-7.7) K/mm3 BUN (7-17) mg/dL Total Protein (6.3-8.2) g/dL Ur Specific [place] 1.002 L (1.003-1.030) Salicylates (2.8-20.0) mg/dL Acetaminophen 5.0 L (10.0-30.0) ug/mL All other labs normal.
--- NOTE | 2021-03-23 15:32 | Event Note ---
Date: 03/23/21 S- "I'm ok." O- vital signs stable; patient calm and cooperative A- Acute psychosis; HIV P- 1013 recommended by Psych; form filled out and placed on chart; awaiting inpatient psychiatric placement
[2021-03-23] MEDS: FLUoxetine 10 MG TAB PO SCH (15:56)
[2021-03-23] MEDS: SULFAMETHOXAZOLE/TRIMETHOPRIM 800/160MG DS TAB PO SCH (15:56)
[2021-03-23] MEDS: LISINOPRIL 20 MG TAB PO SCH (15:57)
[2021-03-23] MEDS: risperiDONE 0.25 MG TAB PO SCH (15:57)
[2021-03-23] MEDS: PANTOPRAZOLE 20 MG TAB PO SCH (15:57)
[2021-03-23] MEDS: CHOLECALCIFEROL (VIT D3) 1000 UNIT (25 mcg) TAB PO SCH (17:35)
[2021-03-23] MEDS: CETIRIZINE 10 MG TAB PO SCH (17:36)
[2021-03-24] MEDS: cloNIDine 0.1 MG TAB PO SCH ×2 (01:02→21:41)
[2021-03-24] MEDS: risperiDONE 0.25 MG TAB PO SCH ×3 (01:17→21:41)
[2021-03-24] MEDS ORDERED: NON-FORMULARY EACH (Bictegrav/Emtricit/Tenofov Ala 1 EACH Tablet) PO SCH (10:00)
[2021-03-24] MEDS: SULFAMETHOXAZOLE/TRIMETHOPRIM 800/160MG DS TAB PO SCH (11:07)
[2021-03-24] MEDS: CETIRIZINE 10 MG TAB PO SCH (11:08)
[2021-03-24] MEDS: PANTOPRAZOLE 20 MG TAB PO SCH (11:08)
[2021-03-24] MEDS: FLUoxetine 10 MG TAB PO SCH (11:08)
[2021-03-24] MEDS: CHOLECALCIFEROL (VIT D3) 1000 UNIT (25 mcg) TAB PO SCH (11:08)
[2021-03-24] MEDS: LISINOPRIL 20 MG TAB PO SCH (11:09)
--- NOTE | 2021-03-24 12:17 | Event Note ---
Date: 03/24/21 S- patient has no complaints O- vital signs stable; patient calm and cooperative A- Acute psychosis; HIV P- 1013; awaiting inpatient psychiatric placement
[2021-03-25] MEDS ORDERED: ZIPRASIDONE MESYLATE 20 MG VIAL IM ONE ×2 (02:32→02:46)
[2021-03-25] MEDS ORDERED: WATER FOR INJ Sterile (PF) 10 ML ONE (02:32)
[2021-03-25 07:58] VITALS: BP 130/85
--- NOTE | 2021-03-25 10:39 | Progress Note ---
Subjective - Reason for Consult Consult date: 03/25/21 Reason for consult: hallucinations - Chief Complaint Chief complaint: Per nurse note: Received pt in the room. Pt is alert and awake, AAox4. Checked pt's vital signs and is stable, respiration even and non labored not in respiratory distress. Maintained safe and comfortable environment to the pt. Will continue to monitor the pt. The patient was seen today, she is lying in bed awake. She is irritable and states her blood pressure was low and nobody is doing anything about it. The patient says her heart rate was low and nobody is telling her anything. She says "and I didn't have a bath yesterday." The patient still verbalizes seeing spirits. She denies suicidal thoughts, saying "I would not hurt myself. There is nothing inside of me that would do that." When asking the patient about homicidal ideation she pauses for a moment, and says "I don't think I'll hurt anybody." SOCIAL HISTORY Marital Status: Living Arrangements: alone Employment Status: Unemployed Access to guns/weapons: Denies Education: high school History of Abuse: Denies Legal History: Denies REVIEW OF SYSTEMS Constitutional: Negative for weight loss ENT: Negative for stridor Respiratory: Negative for cough or hemoptysis All other systems reviewed and are negative MENTAL STATUS EXAMINATION General Appearance and Behavior: Age appropriate, good hygiene, not wearing appropriate clothes, good eye contact, suspicious Cooperation: Participating Psychomotor Behavior: Psychomotor normal Mood: "not well" Affect and affective range: Restricted Thought Process: illogical Speech: Normal tone and pace Thought Content Suicidal Ideation: Denies Homicidal Ideation: Yes Hallucinations: Visual Delusions: None elicited Impulse Control: Limited Insight and Judgment: Impaired insight and judgment Memory: Limited Attention: Divided attention impaired Orientation: A/o x 3 Assessment and Plan (1) Psychosis, Unspecified Current Visit: Yes Status: Acute Treatment Plan 1013 Prozac 10mg po daily Risperidone 0.25mg po BID Sitter: Defer to primary Medical: Per primary Disposition: Recommend acute psychiatric inpatient treatment Will follow. Thank you for this consult Case staffed by Dr. Cheney Mental Status Exam - Vital signs Last Vital Signs Temp 98.1 F 03/25/21 07:57 Pulse 73 03/25/21 07:57 Resp 16 03/25/21 07:57 BP 130/85 03/25/21 07:57 Pulse Ox 98 03/25/21 07:57
--- NOTE | 2021-03-25 11:36 | Event Note ---
Date: 03/25/21 S- patient has no complaints O- vital signs stable; patient calm and cooperative A- Acute psychosis; HIV P- 1013; pt accepted into [facility], awaiting transport
== END 2021-03-25 12:48 ==
LOC: EEVIPCON 18:44 → ED 18:44
DX: Z00.8 Encounter for other general examination (principal); Z20.822 Contact with and (suspected) exposure to COVID-19; Z79.899 Other long term (current) drug therapy; Z88.8 Allergy status to other drugs, medicaments and biological substances; Z21 Asymptomatic human immunodeficiency virus [HIV] infection status; Z90.710 Acquired absence of both cervix and uterus; Z98.890 Other specified postprocedural states
CPT/HCPCS: 36415; 80053; 80307; 81001; 82550; 83735; 84702; 85025; 99285; J3486; U0003; 80320; G0480